=== PATIENT | male | born 1965 | race Caucasian/White ===

== ENCOUNTER 2021-06-21 16:25 | Emergency (ER) | payer OTHER ==
[~2021-06-21 16:25] MED LIST: 50% Dextrose in Water 50 ML Syringe IVPUSH ONE
[2021-06-21] MEDS ORDERED: 50% Dextrose in Water 50 ML Syringe IVPUSH ONE ×5 (16:41→19:56)
[2021-06-21] MEDS ORDERED: 50% Dextrose in Water 50 ML Syringe ONE ×3 (16:42→18:54)
[2021-06-21 16:53] LABS: ANION GAP 12.6 mEq/L (7-13); CHLORIDE,CL 104 mmol/L (98-107); SODIUM,NA 138 mmol/L (136-145)
[2021-06-21] MEDS ORDERED: Dextrose 5% in Water 500 ML IV SCH (17:15)
[2021-06-21] MEDS ORDERED: Ondansetron 4 MG/2 ML SDV ONE (17:57)
[2021-06-21] MEDS ORDERED: Ondansetron 4 MG/2 ML SDV IVPUSH ONE (18:16)
[2021-06-21] MEDS ORDERED: Metoclopramide 10 MG/2 ML SDV IVPUSH ONE (18:21)
[2021-06-21] MEDS ORDERED: Metoclopramide 10 MG/2 ML SDV ONE (18:22)
[2021-06-21 18:53] LABS: O2 DELIVERY DEVICE NASAL CANNULA
[2021-06-21 19:04] LABS: ALLEN TEST PERFORMED
[2021-06-21] MEDS ORDERED: Dextrose 10% in Water 500 ML IV ONE (20:05)
[2021-06-21] MEDS: Dextrose 10% in Water 500 ML ONE ×2 (20:13→20:20)
[2021-06-23 12:06] LABS: BICARBONATE,ARTERIAL 24.5 mmol/L (22-26); O2 SATURATION ARTERIAL 90 % (95-100); PCO2 ARTERIAL 40 mmHg (35-45); PO2 ARTERIAL 59 mmHg (70-100)
[2021-06-23 12:07] LABS: BASE EXCESS ARTERIAL 0 mmol/L ((-2)-(+3))
== END 2021-06-21 21:56 ==
LOC: DL.ED 16:25
DX: R41.82 Altered mental status, unspecified (principal); E16.2 Hypoglycemia, unspecified; Z20.822 Contact with and (suspected) exposure to COVID-19
CPT/HCPCS: 36415; 36600; 51702; 70450; 80053; 80307; 82140; 82803; 82947; 83605; 84484; 85025; 87040; 93005; 96374; 96375; 96376; 99285-25; J2405; J2765; J7060; U0002

== ENCOUNTER 2024-08-26 14:57 | Emergency (ER) | payer OTHER ==
[2024-08-26] MEDS ORDERED: Sodium Chloride 0.9% 10 ML Syringe FLUSH PRN (15:53)
[2024-08-26] MEDS: Ondansetron 4 MG/2 ML SDV IVPUSH ONE (15:57)
[2024-08-26] MEDS: HYDROmorphone 1 MG/ML Syringe IVPUSH ONE (15:57)
[2024-08-26 16:14] LABS: APPEARANCE,URINE CLEAR (CLEAR); BILIRUBIN,URINE NEGATIVE (NEGATIVE); COLOR,URINE DARK YELLOW (YELLOW); GLUCOSE,URINE NEGATIVE (NEGATIVE); KETONES,URINE NEGATIVE (NEGATIVE); LEUKOCYTE ESTERASE,URINE TRACE (NEGATIVE); NITRITE,URINE POSITIVE (NEGATIVE); OCCULT BLOOD,URINE TRACE-INTACT (NEGATIVE); PROTEIN,URINE 30 (NEGATIVE); UROBILINOGEN,URINE 0.2 mg/dL (0.2-1.0)
[2024-08-26 16:15] LABS: BASOPHILS PERCENT AUTO 0.3 % (0.0-1.0); EOSINOPHILS PERCENT AUTO 1.4 % (1.0-3.0); HEMATOCRIT 49.3 % (40.0-54.0); HEMOGLOBIN 17.9 g/dL (14.0-18.0); LYMPHOCYTES PERCENT AUTO 22.4 % (20.5-50.1); MEAN CORPUSCULAR HEMOGLOBIN 31.3 pg (27.0-34.0); MEAN CORPUSCULAR HGB CONC 36.3 g/dL (33.0-35.0); MEAN CORPUSCULAR VOLUME 86.2 fL (80-100); MONOCYTES PERCENT AUTO 9.9 % (2-8); PLATELET COUNT,PLT 295 10^3/uL (150-450); RED BLOOD CELL COUNT 5.72 10^6/uL (4.6-6.2); WHITE BLOOD CELL COUNT,WBC 10.5 10^3/uL (5.0-10.0)
[2024-08-26] MEDS ORDERED: Ketorolac 30 MG/ML SDV IVPUSH ONE (16:16)
[2024-08-26 16:28] LABS: RBC,URINE 0-5 /HPF (0-5); WBC,URINE 0-5 /HPF (0-5/HPF)
[2024-08-26 16:29] LABS: BACTERIA,URINE RARE /HPF (0-FEW/HPF); EPITHELIAL CELLS,URINE RARE /HPF (NOT SEEN)
[2024-08-26 16:31] LABS: A/G RATIO 1.2; ALANINE AMINOTRANSFERASE,ALT 42 U/L (16-63); ALBUMIN 4.3 g/dL (3.4-5.0); ALKALINE PHOSPHATASE 120 U/L (46-116); ANION GAP 18.4 mEq/L (7-13); ASPARTATE AMNIOTRANSFERASE,AST 24 U/L (15-37); BILIRUBIN TOTAL 0.7 mg/dL (0.2-1.0); BLOOD UREA NITROGEN,BUN 15 mg/dL (7-18); BUN/CREATININE RATIO 13.8 (No establ ref range); C-REACTIVE PROTEIN 0.52 ng/dL (<=0.50); CARBON DIOXIDE,CO2 25 mmol/L (21-32); CHLORIDE,CL 98 mmol/L (98-107); CREATININE 1.09 mg/dL (0.70-1.30); GLUCOSE RANDOM 216 mg/dL (70-99); POTASSIUM,K 3.4 mmol/L (3.5-5.1); SODIUM,NA 138 mmol/L (136-145)
[2024-08-26 16:33] LABS: ESTIMATED GFR 78 mL/min (>=60)
[2024-08-26 16:37] LABS: LACTIC ACID 2.4 mmol/L (0.4-2.0)
[2024-08-26] MEDS: cefTRIAXone 1 GM Vial IVPUSH ONE (16:48)
[2024-08-26 16:50] LABS: PROTHROMBIN TIME 10.3 SEC (9.0-12.0); PTT,PARTIAL THROMBOPLSTIN TIME 24.5 SEC (22.0-34.0)
[2024-08-26] MEDS: Ciprofloxacin in D5W 400 MG in Premix Bag 1 BAG IV ONE (16:59)
[2024-08-26] MEDS: Lidocaine 2% Jelly 10 ML Urojet MUCMEM ONE (17:06)
[2024-08-26] MEDS: diazePAM 10 MG/2 ML Syringe IVPUSH ONE (17:06)
[2024-08-26] MEDS: Take Home: Ciprofloxacin HCl 500 MG, 6 Tab Pack PO ONE (18:05)
== END 2024-08-26 18:56 | disposition home or self-care (01) ==
LOC: DL.ED 14:57
DX: T83.511A Infection and inflammatory reaction due to indwelling urethral catheter, initial encounter (principal); N39.0 Urinary tract infection, site not specified; R33.9 Retention of urine, unspecified; Z79.4 Long term (current) use of insulin; Z79.890 Hormone replacement therapy; Z79.899 Other long term (current) drug therapy
CPT/HCPCS: 36415; 51702; 80053; 81001; 83605; 85025; 85610; 85730; 86140; 87040; 87086; 96365; 96375; 99283; 99284; A9270; C1758; J0744; J1171; J2405; J3360; J0696

== ENCOUNTER 2024-12-06 16:14 | Emergency (ER) | payer OTHER | END 2024-12-06 18:15 | disposition home or self-care (01) | LOC: DL.ED 16:14 | DX: S82.301A Unspecified fracture of lower end of right tibia, initial encounter for closed fracture (principal); S82.831A Other fracture of upper and lower end of right fibula, initial encounter for closed fracture; E10.9 Type 1 diabetes mellitus without complications; Z79.4 Long term (current) use of insulin; Z79.890 Hormone replacement therapy; Z79.899 Other long term (current) drug therapy; W19.XXXA Unspecified fall, initial encounter | CPT/HCPCS: 29515; 73590-RT; 73610-RT; 99283; 99283-25 ==